=== PATIENT | male | born 1990 | race Caucasian/White ===

== ENCOUNTER 2017-01-01 14:45 | Emergency (ER) | payer BC ==
[~2017-01-01] VITALS: Ht 193 cm; Wt 92.5 kg
[2017-04-08] MEDS ORDERED: KEPPRA500 MG PO (01:39)
[2017-04-08] MEDS ORDERED: ZOLOFT50 M1 PO (01:40)
[2017-06-01] MEDS ORDERED: LEXAPRO10 MG PO (12:40)
== END 2017-01-01 16:00 | disposition short-term general hospital (02) ==
LOC: ER 14:45
DX: G40.909 Epilepsy, unspecified, not intractable, without status epilepticus (principal); M25.511 Pain in right shoulder; F32.9 Major depressive disorder, single episode, unspecified; F43.10 Post-traumatic stress disorder, unspecified; F17.210 Nicotine dependence, cigarettes, uncomplicated; Z79.899 Other long term (current) drug therapy; Z88.5 Allergy status to narcotic agent; Z90.49 Acquired absence of other specified parts of digestive tract
CPT/HCPCS: J2175; J2405

== ENCOUNTER → 2017-01-08 | Outpatient (CLI) | payer BC ==
[~2017-01-08] MED LIST: KEPPRA500 MG PO; LEXAPRO10 MG PO; ZOLOFT50 M1 PO
== END | disposition short-term general hospital (02) ==
LOC: CLNEUR 03:46
DX: G40.909 Epilepsy, unspecified, not intractable, without status epilepticus (principal)

== ENCOUNTER → 2017-01-15 | Outpatient (CLI) | payer BC | END | disposition short-term general hospital (02) | LOC: CLORTH 08:20 | DX: S42.91XA Fracture of right shoulder girdle, part unspecified, initial encounter for closed fracture (principal); S43.101A Unspecified dislocation of right acromioclavicular joint, initial encounter ==

== ENCOUNTER → 2017-02-12 | Outpatient (CLI) | payer BC | END | disposition short-term general hospital (02) | LOC: CLORTH 13:13 | DX: S43.101D Unspecified dislocation of right acromioclavicular joint, subsequent encounter (principal); S42.91XD Fracture of right shoulder girdle, part unspecified, subsequent encounter for fracture with routine healing ==